=== PATIENT | female | born 1935 | race Caucasian/White ===

== ENCOUNTER 2017-12-11 13:41 | Inpatient (IN) | payer MEDICARE, SELFPAY ==
[2017-12-11 13:43] VITALS: BP 128/87; PULSE 118; RESP 18; O2SAT 98; BMI 27.0
--- NOTE | 2017-12-11 13:45 | HMH.EDGENADL ---
ED Disposition Clinical Impression: Acute gastritis, Toxic megacolon, Hemorrhoids Disposition: Still a Patient Condition on Discharge: Fair Instructions: DI for Gastrointestinal Bleeding - Critical Care Critical Care Time: No Attestation: On , the high probability of a clinically significant, sudden or life threatening deterioration of the following system(s) required my full and direct attention, intervention and personal management. The time I documented below is in addition to time spent performing reported procedures but includes the following listed in this critical care notation. Medical Decision Making - Medical Records Medical records reviewed: Yes: I reviewed the patient's medical records. Vital Signs: 12/11/17 13:43 12/11/17 15:37 Temperature Source Oral Pulse Rate [Right Brachial] 118 H 112 H Respiratory Rate 18 Blood Pressure [Right Arm] 128/87 130/70 Blood Pressure Mean [Right Arm] 100 90 Blood Pressure Source [Right Arm] Automatic Cuff Automatic Cuff Blood Pressure Position [Right Arm] Sitting Supine 02 Sat by Pulse Oximetry 98 91 L Oxygen Delivery Method Room Air - Lab Data Lab Results 12/11/17 13:45: WBC 16.3 H, RBC 4.84, Hgb 14.3, Hct 44.5, MCV 91.8, MCH 29.6, MCHC 32.3, RDW 13.5, Plt Count 205, MPV 8.0, Neut % (Auto) 84.8 H, Lymph % (Auto) 10.8, [place] % (Auto) 3.9, Eos % (Auto) 0.4, Baso % (Auto) 0.1, Neut # (Auto) 13.8 H, Lymph # (Auto) 1.8, [place] # (Auto) 0.6, Eos # (Auto) 0.1, Baso # (Auto) 0.0, Total Counted 100, Neutrophils % (Manual) 82 H, Band Neutrophils % 3.0, Lymphocytes % (Manual) 6 L, Atypical Lymphs % 3.0, Monocytes % (Manual) 6, Platelet Estimate Normal, RBC Morphology Normal 12/11/17 13:45: PT 11.0, INR 1.02, APTT 25.0 12/11/17 13:45: Sodium 142, Potassium 4.2, Chloride 106, Carbon Dioxide 29, Anion Gap 11.2, BUN 28 H, Creatinine 1.06 H, Estimated Creat Clear 54, Estimated GFR 50 L, Est GFR ( Amer) 60, Glucose 137 H, Calcium 9.2, Magnesium 1.9, Total Bilirubin 0.5, AST 17, ALT 18, Alkaline Phosphatase 82, Total Protein 7.0, Albumin 3.1 L, Globulin 3.9 H, Albumin/Globulin Ratio 0.8 L 12/11/17 13:46: Stool Occult Blood Positive A Result diagrams: 12/11/17 13:45 12/11/17 13:45 Orders (Tests/Meds): ORDERS Category Date Time Status CT abdomen pelvis wo con Stat Cat Scan 12/11/17 14:09 Taken Acute abdomen XR series [XR acute abdomen series] Stat Exams 12/11/17 13:46 Taken Lactic Acid Stat Lab 12/11/17 14:12 Ordered - CT Data CT Scan: Abdomen, Pelvis Time Received: 16:[address] Reviewed: Yes: I have viewed the radiologist's interpretation Preliminary Findings: Abnormal - [place]qu[place] Inquiry Pt receiving controlled substance: No [place] was queried for this patient: No Medical Decision Making Narrative: I discussed the patient presentation labs and CT scan results with Dr. Rivas who recommended admission for H2 blockers and consultation with Dr. Hurtado. General Adult HPI - General Chief complaint: GI Bleed Stated complaint: possible gi bleed - History of Present Illness HPI narrative: This is a 82 years old white female detention resident who has been suffering from constipation. she was giving an enema last night with good results. Today she developed coffee-ground emesis abdominal distention and was reported to have no bowel sounds. She was brought by EMS to the ED in a hemodynamically stable condition. Onset (ago): day(s) (symptoms started today.) Location: abdomen Radiation: non-radiation Relieving factors: other (She had history of constipation that was relieved by enema. ) Associated symptoms: nausea/vomiting (For ground emesis.) - Related Data Allergies Allergy/AdvReac Type Severity Reaction Status Date / Time No Known Allergies Allergy Unverified 10/19/17 14:13 ROS Obtained: Yes All systems reviewed & no additional complaints Physical Exam - General General appearance: alert, in no apparent distress - Head [place]
--- NOTE | 2017-12-11 13:46 | XR_ITS ---
XR acute abdomen series HISTORY: ITS.REASON: vomiting and constipation, abdominal distention ORDERING PHYSICIAN: Debi Evans MD PATIENT AGE: 82 years COMPARISON: 06/07/2016 FINDINGS: There is diffuse distention of the sigmoid colon as well as the colon proximal to this region. Mild small bowel gaseous distention also noted. The rectosigmoid measures up to 15 cm and contains air and stool consistent with colonic ileus. No free air. Frontal view the chest shows cardiomegaly with a hiatal hernia. IMPRESSION: Colonic ileus
--- NOTE | 2017-12-11 13:49 | ED_ITS ---
ED Disposition Clinical Impression: Acute gastritis, Toxic megacolon, Hemorrhoids Disposition: Still a Patient Condition on Discharge: Fair Instructions: DI for Gastrointestinal Bleeding - Critical Care Critical Care Time: No Attestation: On , the high probability of a clinically significant, sudden or life threatening deterioration of the following system(s) required my full and direct attention, intervention and personal management. The time I documented below is in addition to time spent performing reported procedures but includes the following listed in this critical care notation. Medical Decision Making - Medical Records Medical records reviewed: Yes: I reviewed the patient's medical records. Vital Signs: 12/11/17 13:43 12/11/17 15:37 Temperature Source Oral Pulse Rate [Right Brachial] 118 H 112 H Respiratory Rate 18 Blood Pressure [Right Arm] 128/87 130/70 Blood Pressure Mean [Right Arm] 100 90 Blood Pressure Source [Right Arm] Automatic Cuff Automatic Cuff Blood Pressure Position [Right Arm] Sitting Supine 02 Sat by Pulse Oximetry 98 91 L Oxygen Delivery Method Room Air - Lab Data Lab Results 12/11/17 13:45: WBC 16.3 H, RBC 4.84, Hgb 14.3, Hct 44.5, MCV 91.8, MCH 29.6, MCHC 32.3, RDW 13.5, Plt Count 205, MPV 8.0, Neut % (Auto) 84.8 H, Lymph % (Auto ) 10.8, [place] % (Auto) 3.9, Eos % (Auto) 0.4, Baso % (Auto) 0.1, Neut # (Auto) 13.8 H, Lymph # (Auto) 1.8, [place] # (Auto) 0.6, Eos # (Auto) 0.1, Baso # (Auto) 0.0, Total Counted 100, Neutrophils % (Manual) 82 H, Band Neutrophils % 3.0, Lymphocytes % (Manual) 6 L, Atypical Lymphs % 3.0, Monocytes % (Manual) 6, Platelet Estimate Normal, RBC Morphology Normal 12/11/17 13:45: PT 11.0, INR 1.02, APTT 25.0 12/11/17 13:45: Sodium 142, Potassium 4.2, Chloride 106, Carbon Dioxide 29, Anion Gap 11.2, BUN 28 H, Creatinine 1.06 H, Estimated Creat Clear 54, Estimated GFR 50 L, Est GFR ( Amer) 60, Glucose 137 H, Calcium 9.2, Magnesium 1.9, Total Bilirubin 0.5, AST 17, ALT 18, Alkaline Phosphatase 82, Total Protein 7.0, Albumin 3.1 L, Globulin 3.9 H, Albumin/Globulin Ratio 0.8 L 12/11/17 13:46: Stool Occult Blood Positive A Result diagrams: 12/11/17 13:45 12/11/17 13:45 Orders (Tests/Meds): ORDERS Category Date Time Status CT abdomen pelvis wo con Stat Cat Scan 12/11/17 14:09 Taken Acute abdomen XR series [XR acute abdomen series] Stat Exams 12/11/17 13:46 Taken Lactic Acid Stat Lab 12/11/17 14:12 Ordered - CT Data CT Scan: Abdomen, Pelvis Time Received: 16:[address] Reviewed: Yes: I have viewed the radiologist's interpretation Preliminary Findings: Abnormal - [place] Inquiry Pt receiving controlled substance: No [place] was queried for this patient: No Medical Decision Making Narrative: I discussed the patient presentation labs and CT scan results with Dr. Rivas who recommended admission for H2 blockers and consultation with Dr. Hurtado. General Adult HPI - General Chief complaint: GI Bleed Stated complaint: possible gi bleed - History of Present Illness HPI narrative: This is a 82 years old white female [facility] resident who has been suffering from constipation. she was giving an enema last night with good results. Today she developed coffee-ground emesis abdominal distention and was reported to have no bowel sounds. She was brought by EMS to the ED in a hemodynamically stable condition. Onset (ago): day(s) (
--- NOTE | 2017-12-11 14:09 | CT_ITS ---
CT abdomen pelvis wo con CLINICAL INDICATION: Bloating, abdominal distention, history of toxic megacolon ITS.REASON: r/o obstruction ORDERING PHYSICIAN: Boaz Mondragon MD PATIENT AGE: 82 years COMPARISON: 10/01/2017 TECHNIQUE: Axial images obtained with sagittal and coronal reformats. PROCEDURE: Oral Contrast: None IV Contrast: None . FINDINGS: Lower thoracic images show cardiomegaly with mild thickening of the pericardium suggesting small pericardial effusion with a moderate-sized hiatal hernia. Gallbladder is slightly distended with suspected gallstones. No ductal dilatation. The spleen, adrenal glands, pancreas, and kidneys, ureters, and urinary bladder has an unremarkable appearance. No evidence of appendicitis There is markedly dilated colon throughout worse at the sigmoid and rectosigmoid region containing air and stool. The rectosigmoid colon is distended measuring up to 14 cm. No obvious colonic wall thickening. No free air. No focal inflammatory changes evident. No obvious pneumatosis. IMPRESSION: 1. Markedly dilated colon as described above worse at the rectosigmoid region containing air and stool similar to 10/01/2017 consistent with colonic ileus 2. Cholelithiasis with mildly distended gallbladder. 3. Hiatal hernia
[2017-12-11 14:13] LABS: Basophils % 0.1 % (0.1-2.0); Eosinophils # 0.1 K/mm3 (0.0-0.4); Eosinophils % 0.4 % (0.1-12.0); Hematocrit 44.5 % (37.0-47.0); Hemoglobin 14.3 g/dL (12.2-16.2); Lymphocytes # 1.8 K/mm3 (0.7-4.5); Lymphocytes % 10.8 K/mm3 (10-50); Mean Corpuscular HGB Conc 32.3 g/dL (31.8-35.4); Mean Corpuscular Hemoglobin 29.6 pg (27.0-31.2); Mean Corpuscular Volume 91.8 fl (81-99); Monocytes # 0.6 K/mm3 (0.1-1.0); Monocytes % 3.9 % (1.7-9.3); Neutrophils # 13.8 K/mm3 (1.8-7.8); Neutrophils % 84.8 % (37.0-80.0); Platelet Count 205 K/mm3 (142-424); Red Blood Count 4.84 M/mm3 (4.20-5.40); Red Cell Distribution Width 13.5 % (11.5-17.5); White Blood Count 16.3 K/mm3 (4.8-10.8)
[2017-12-11 14:17] LABS: Alanine Aminotransferase 18 U/L (12-78); Albumin Level 3.1 gm/dL (3.4-5.0); Albumin/Globulin Ratio 0.8 (1.1-1.8); Alkaline Phosphatase 82 U/L (46-116); Anion Gap 11.2 mEq/L (5-15); Aspartate Amino Transferase 17 U/L (15-37); Bilirubin,Total 0.5 mg/dL (0.2-1.0); Blood Urea Nitrogen 28 mg/dL (7-18); Calcium 9.2 mg/dL (8.5-10.1); Carbon Dioxide 29 mmol/L (21.0-32.0); Chloride 106 mmol/L (98-107); Creatinine Clearance Estimated 54 mL/min (0-300); Creatinine,Serum 1.06 mg/dL (0.55-1.02); Estimated Glomerular Filt Rate 50 ml/min (>60); GFR (African American) 60 ML/MIN (>60); Globulin 3.9 gm/dl (1.3-3.2); Glucose 137 mg/dL (74-106); INR 1.02 (0.9-1.1); Magnesium 1.9 mg/dL (1.4-2.2); Potassium 4.2 mmoL/L (3.5-5.1); Sodium 142 mmol/L (136-145)
[2017-12-11 14:23] LABS: MANUAL DIFFERENTIAL MANUAL DIFFERENTIAL (MANUAL DIFF)
[2017-12-11 14:41] LABS: Lymphocytes % 6 % (10-50); Monocytes % 6 % (2-9); Neutrophils % 82 % (42-76); Total Cells Counted 100
[2017-12-11 14:42] LABS: Platelet Estimate Normal; RBC Morphology Normal
[2017-12-11 14:45] LABS: Occult Blood,Stool Positive (Negative)
[2017-12-11 15:37] VITALS: BP 130/70; PULSE 112; O2SAT 91
[2017-12-11 16:56] LABS: Lactic Acid 2.1 mmol/L (0.4-2.0)
[2017-12-11 16:57] LABS: Reflex Lactic Add Lactic Reflex
[2017-12-11 17:26] VITALS: BP 125/82; PULSE 85; RESP 18; TEMP 36.3; O2SAT 99
[2017-12-11 18:23] VITALS: BP 133/82; PULSE 113; RESP 20; TEMP 38.1; O2SAT 93; BMI 27.0
[2017-12-11 20:00] VITALS: BP 157/91; PULSE 120; RESP 24; TEMP 37.3; O2SAT 92
[2017-12-11 20:09] LABS: Lactic Acid Follow Up (RFLX 1) 1.1 (0.4-2.0)
[2017-12-12 04:00] VITALS: BP 135/78; PULSE 105; RESP 20; TEMP 37.1; O2SAT 93
--- NOTE | 2017-12-12 06:39 | PC.NURSE ---
Resting in bed. Emesis x 1 this shift. Brown in color. States that her stomach has been hurting on and off during the shift. Protonix drip continues to run at this time. Second IV placed in left hand and tolerated this well. No signs or symptoms of distress noted. NO complaints voiced at this time.
--- NOTE | 2017-12-12 07:24 | HMH.HP ---
*Admission Date: 12/11/17 *Chief complaint: Abdominal distention *History of present illness: 82-year-old female group home resident presented to the emergency department yesterday with distended abdomen and concern about obstruction. [facility]entiary staff had reported the abdominal distention with absent bowel sounds. Patient was brought to the emergency department. She apparently also had an enema at some point in the preceding 24 hours with excellent response. Workup revealed significant colonic distention. Staff at the group home and also reported coffee ground emesis. Patient was admitted and placed on IV fluids and Protonix. Surgical consult was ordered. Overnight patient had no problems although tells me she vomited at least twice. Some of the emesis is dried on her down and bed sheets this morning and does appear coffee-ground [facility] History Medical History: Denies:: Cancer, Diabetes Mellitus Type 1, Diabetes Mellitus Type 2, Internal Pacemaker, MRSA Other Surgeries: No: Pacemaker Amputation: No - *Social History Smoking Status: Never smoker Alcohol Intake: never Occupational Status: retired Housing: group home - Psychiatric History Expresses thoughts of harming self/others: None Suicide Plan Description: No Plan Review of Systems - Constitutional Denies body ache(s), Denies chills - Eyes Denies blurry vision - *Cardiovascular Denies chest pain, Denies chest pain at rest, Denies shortness of breath - *Respiratory Reports cough Meds Home Medications Medication Instructions Recorded Confirmed Type Acetaminophen 500 mg PO Q4HP PRN 12/11/17 12/11/17 History Buspirone HCl [Buspar 10mg tablet] 10 mg PO TID 12/11/17 12/11/17 History Calcium Carbonate/Vitamin D3 1 each PO BID 12/11/17 12/11/17 History [Caltrate 600 Plus D3 Tablet] Cyanocobalamin (Vitamin B-12) 1,000 mcg PO DAILY 12/11/17 12/11/17 History [Vitamin B-12] Donepezil HCl [Aricept 10mg tablet] 10 mg PO HS 12/11/17 12/11/17 History Hydrocortisone [Hydrocortisone 1% 0 gm TP BID 12/11/17 12/11/17 History Cream 30gm Tube] Lactobacillus Acidophilus 1 each PO DAILY 12/11/17 12/11/17 History [Acidophilus Lactobacilli] Meclizine HCl [Meclizine 25mg Tab] 25 mg PO TID PRN 12/11/17 12/11/17 History Nystatin [Nystatin Cr 100,000 0 gm TOPICAL TID PRN 12/11/17 12/11/17 History Units/GM 30GM] Ondansetron HCl [Zofran 4mg Tab] 4 mg PO Q6 PRN 12/11/17 12/11/17 History Polyethylene Glycol 3350 [Miralax 17 gm PO BID 12/11/17 12/11/17 History 17gm Packet] Quetiapine Fumarate [Seroquel] 50 mg PO DAILY 12/11/17 12/11/17 History Quetiapine Fumarate [Seroquel] 150 mg PO 1600 12/11/17 12/11/17 History Sod Phos,M-B/Na Phos,Di-Ba [Fleet 133 ml RC DAILYP PRN 12/11/17 12/11/17 History Enema] Trazodone HCl 50 mg PO HS 12/11/17 12/11/17 History Allergies Allergy/AdvReac Type Severity Reaction Status Date / Time No Known Allergies Allergy Unverified 10/19/17 14:13 Exam Vital signs and Labs for Last 24 Hours: Temp Pulse Resp BP Pulse Ox 98.7 F 105 H 20 135/78 93 L 12/12/17 04:00 12/12/17 04:00 12/12/17 04:00 12/12/17 04:00 12/12/17 04:00 Laboratory Results - last 24 hr 12/11/17 19:46: Lactic Acid Fup @ 4Hr 1.1 Laboratory Results - last 24 hr 12/11/17 13:45: WBC 16.3 H, RBC 4.84, Hgb 14.3, Hct 44.5, MCV 91.8, MCH 29.6, MCHC 32.3, RDW 13.5, Plt Count 205, MPV 8.0, Neut % (Auto) 84.8 H, Lymph % (Auto) 10.8, [place] % (Auto) 3.9, Eos % (Auto) 0.4, Baso % (Auto) 0.1, Neut # (Auto) 13.8 H, Lymph # (Auto) 1.8, [place] # (Auto) 0.6, Eos # (Auto) 0.1, Baso # (Auto) 0.0, Total Counted 100, Neutrophils % (Manual) 82 H, Band Neutrophils % 3.0, Lymphocytes % (Manual) 6 L, Atypical Lymphs % 3.0, Monocytes % (Manual) 6, Platelet Estimate Normal, RBC Morphology Normal 12/11/17 13:45: PT 11.0, INR 1.02, APTT 25.0 12/11/17 13:45: Sodium 142, Potassium 4.2, Chloride 106, Carbon Dioxide 29, Anion Gap 11.2, BUN 28 H, Creatinine 1.06 H, [place]
[2017-12-12 07:25] LABS: Anion Gap 10.1 mEq/L (5-15); Blood Urea Nitrogen 26 mg/dL (7-18); Carbon Dioxide 30 mmol/L (21.0-32.0); Chloride 106 mmol/L (98-107); Creatinine Clearance Estimated 54 mL/min (0-300); Creatinine,Serum 0.85 mg/dL (0.55-1.02); Estimated Glomerular Filt Rate 64 ml/min (>60); GFR (African American) 78 ML/MIN (>60); Glucose 131 mg/dL (74-106); Potassium 4.1 mmoL/L (3.5-5.1); Sodium 142 mmol/L (136-145)
[2017-12-12 07:26] LABS: Basophils % 0.1 % (0.1-2.0); Eosinophils % 0.5 % (0.1-12.0); Hematocrit 43.8 % (37.0-47.0); Hemoglobin 14.2 g/dL (12.2-16.2); Lymphocytes # 1.4 K/mm3 (0.7-4.5); Lymphocytes % 16.3 K/mm3 (10-50); Mean Corpuscular HGB Conc 32.4 g/dL (31.8-35.4); Mean Corpuscular Hemoglobin 29.9 pg (27.0-31.2); Mean Corpuscular Volume 92.1 fl (81-99); Mean Platelet Volume 7.7 fl (7.4-10.4); Monocytes # 0.4 K/mm3 (0.1-1.0); Neutrophils # 6.9 K/mm3 (1.8-7.8); Neutrophils % 79.1 % (37.0-80.0); Platelet Count 175 K/mm3 (142-424); Red Blood Count 4.76 M/mm3 (4.20-5.40); Red Cell Distribution Width 13.6 % (11.5-17.5); White Blood Count 8.8 K/mm3 (4.8-10.8)
[2017-12-12 07:27] VITALS: BP 139/80; PULSE 99; RESP 18; TEMP 36.9; O2SAT 93
--- NOTE | 2017-12-12 07:27 | P.HP_ITS ---
*Admission Date: 12/11/17 *Chief complaint: Abdominal distention *History of present illness: 82-year-old female shelter resident presented to the emergency department yesterday with distended abdomen and concern about obstruction. detention staff had reported the abdominal distention with absent bowel sounds. Patient was brought to the emergency department. She apparently also had an enema at some point in the preceding 24 hours with excellent response. Workup revealed significant colonic distention. Staff at the shelter and also reported coffee ground emesis. Patient was admitted and placed on IV fluids and Protonix. Surgical consult was ordered. Overnight patient had no problems although tells me she vomited at least twice. Some of the emesis is dried on her down and bed sheets this morning and does appear coffee-ground [facility] History Medical History: Denies:: Cancer, Diabetes Mellitus Type 1, Diabetes Mellitus Type 2, Internal Pacemaker, MRSA Other Surgeries: No: Pacemaker Amputation: No - *Social History Smoking Status: Never smoker Alcohol Intake: never Occupational Status: retired Housing: shelter - Psychiatric History Expresses thoughts of harming self/others: None Suicide Plan Description: No Plan Review of Systems - Constitutional Denies body ache(s), Denies chills - Eyes Denies blurry vision - *Cardiovascular Denies chest pain, Denies chest pain at rest, Denies shortness of breath - *Respiratory Reports cough Meds Home Medications Medication Instructions Recorded Confirmed Type Acetaminophen 500 mg PO Q4HP PRN 12/11/17 12/11/17 History Buspirone HCl [Buspar 10mg tablet] 10 mg PO TID 12/11/17 12/11/17 History Calcium Carbonate/Vitamin D3 1 each PO BID 12/11/17 12/11/17 History [Caltrate 600 Plus D3 Tablet] Cyanocobalamin (Vitamin B-12) 1,000 mcg PO DAILY 12/11/17 12/11/17 History [Vitamin B-12] Donepezil HCl [Aricept 10mg tablet] 10 mg PO HS 12/11/17 12/11/17 History Hydrocortisone [Hydrocortisone 1% 0 gm TP BID 12/11/17 12/11/17 History Cream 30gm Tube] Lactobacillus Acidophilus 1 each PO DAILY 12/11/17 12/11/17 History [Acidophilus Lactobacilli] Meclizine HCl [Meclizine 25mg Tab] 25 mg PO TID PRN 12/11/17 12/11/17 History Nystatin [Nystatin Cr 100,000 0 gm TOPICAL TID PRN 12/11/17 12/11/17 History Units/GM 30GM] Ondansetron HCl [Zofran 4mg Tab] 4 mg PO Q6 PRN 12/11/17 12/11/17 History Polyethylene Glycol 3350 [Miralax 17 gm PO BID 12/11/17 12/11/17 History 17gm Packet] Quetiapine Fumarate [Seroquel] 50 mg PO DAILY 12/11/17 12/11/17 History Quetiapine Fumarate [Seroquel] 150 mg PO 1600 12/11/17 12/11/17 History Sod Phos,M-B/Na Phos,Di-Ba [Fleet 133 ml RC DAILYP PRN 12/11/17 12/11/17 History Enema] Trazodone HCl 50 mg PO HS 12/11/17 12/11/17 History Allergies Allergy/AdvReac Type Severity Reaction Status Date / Time No Known Allergies Allergy Unverified 10/19/17 14:13 Exam Vital signs and Labs for Last 24 Hours: Temp Pulse Resp BP Pulse Ox 98.7 F 105 H 20 135/78 93 L 12/12/17 04:00 12/12/17 04:00 12/12/17 04:00 12/12/17 04:00 12/12/17 04:00 Laboratory Results - last 24 hr 12/11/17 19:46: Lactic Acid Fup @ 4Hr 1.1 Laboratory Results - last 24 hr 12/11/17 13:45: WBC 16.3 H, RBC 4.84, Hgb 14.3, Hct 44.5, MCV 91.8, MCH 29.6,
[2017-12-12 08:00] VITALS: O2SAT 93
--- NOTE | 2017-12-12 08:12 | HMH.GSCON ---
*Admission Date: 12/11/17 *Chief complaint: abdominal pain *History of present illness: This is an 82 yo female seen in consultation after presenting to the ED with abdominal pain. 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 She was recently hospitalized where aggressive therapy included milk/molasses enemas. Staff at the alf and also reported coffee ground emesis. Review of Systems - Constitutional Denies fever(s) - Eyes Denies change in vision - *Cardiovascular Denies chest pain - *Respiratory Denies cough - *Gastrointestinal Reports abdominal pain, Reports constipation, Reports nausea, Reports vomiting, Denies black, tarry stools [facility] History Medical History: Denies:: Cancer, Diabetes Mellitus Type 1, Diabetes Mellitus Type 2, Internal Pacemaker, MRSA Other Surgeries: No: Pacemaker Amputation: No - *Social History Smoking Status: Never smoker Alcohol Intake: never Occupational Status: retired Housing: alf - Psychiatric History Expresses thoughts of harming self/others: None Suicide Plan Description: No Plan Meds Home Medications Medication Instructions Recorded Confirmed Type Acetaminophen 500 mg PO Q4HP PRN 12/11/17 12/11/17 History Buspirone HCl [Buspar 10mg tablet] 10 mg PO TID 12/11/17 12/11/17 History Calcium Carbonate/Vitamin D3 1 each PO BID 12/11/17 12/11/17 History [Caltrate 600 Plus D3 Tablet] Cyanocobalamin (Vitamin B-12) 1,000 mcg PO DAILY 12/11/17 12/11/17 History [Vitamin B-12] Donepezil HCl [Aricept 10mg tablet] 10 mg PO HS 12/11/17 12/11/17 History Hydrocortisone [Hydrocortisone 1% 0 gm TP BID 12/11/17 12/11/17 History Cream 30gm Tube] Lactobacillus Acidophilus 1 each PO DAILY 12/11/17 12/11/17 History [Acidophilus Lactobacilli] Meclizine HCl [Meclizine 25mg Tab] 25 mg PO TID PRN 12/11/17 12/11/17 History Nystatin [Nystatin Cr 100,000 0 gm TOPICAL TID PRN 12/11/17 12/11/17 History Units/GM 30GM] Ondansetron HCl [Zofran 4mg Tab] 4 mg PO Q6 PRN 12/11/17 12/11/17 History Polyethylene Glycol 3350 [Miralax 17 gm PO BID 12/11/17 12/11/17 History 17gm Packet] Quetiapine Fumarate [Seroquel] 50 mg PO DAILY 12/11/17 12/11/17 History Quetiapine Fumarate [Seroquel] 150 mg PO 1600 12/11/17 12/11/17 History Sod Phos,M-B/Na Phos,Di-Ba [Fleet 133 ml RC DAILYP PRN 12/11/17 12/11/17 History Enema] Trazodone HCl 50 mg PO HS 12/11/17 12/11/17 History Allergies Allergy/AdvReac Type Severity Reaction Status Date / Time No Known Allergies Allergy Unverified 10/19/17 14:13 Exam Vital signs and Labs for Last 24 Hours: Temp Pulse Resp BP Pulse Ox 98.4 F 99 H 18 139/80 93 L 12/12/17 07:27 12/12/17 07:27 12/12/17 07:27 12/12/17 07:27 12/12/17 07:27 Laboratory Results - last 24 hr 12/11/17 19:46: Lactic Acid Fup @ 4Hr 1.1 12/12/17 06:20: WBC 8.8 D, RBC 4.76, Hgb 14.2, Hct 43.8, MCV 92.1, MCH 29.9, MCHC 32.4, RDW 13.6, Plt Count 175, MPV 7.7, Neut % (Auto) 79.1, Lymph % (Auto) 16.3, [place] % (Auto) 4.0, Eos % (Auto) 0.5, Baso % (Auto) 0.1, Neut # (Auto) 6.9, Lymph # (Auto) 1.4, [place] # (Auto) 0.4, Eos # (Auto) 0.0, Baso # (Auto) 0.0 12/12/17 06:20: Sodium 142, Potassium 4.1, Chloride 106, Carbon Dioxide 30, Anion Gap 10.1, BUN 26 H, Creatinine 0.85, Estimated Creat Clear 54, Estimated GFR 64, Est GFR ( Amer) 78 D, Glucose 131 H I & O for Last 24 hours: Intake & Output 0212/10/17 12/11/17 12/12/17 11:59 11:59 11:59 11:59 Weight 167 lb 7 oz - Constitutional no acute distress - *Routine Respiratory Exam Absent: respiratory distress - *Routine Cardiovascular Exam Present: RRR - *Routine Abdominal Exam Present: soft, distended Results - Labs 12/12/17 06:20 12/12/17 06:20 Laboratory Results - last 24 hr 12/11/17 19:46: Lactic Acid Fup @ 4Hr 1.1 12/12/17 06:20: WBC 8.8 D, RBC 4.76, Hgb 14.2, Hct 43.8, MCV 92.1
--- NOTE | 2017-12-12 08:20 | P.CONS_ITS ---
*Admission Date: 12/11/17 *Chief complaint: abdominal pain *History of present illness: This is an 82 yo female seen in consultation after presenting to the ED with abdominal pain. 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 She was recently hospitalized where aggressive therapy included milk/molasses enemas. Staff at the assisted and also reported coffee ground emesis. Review of Systems - Constitutional Denies fever(s) - Eyes Denies change in vision - *Cardiovascular Denies chest pain - *Respiratory Denies cough - *Gastrointestinal Reports abdominal pain, Reports constipation, Reports nausea, Reports vomiting, Denies black, tarry stools [facility] History Medical History: Denies:: Cancer, Diabetes Mellitus Type 1, Diabetes Mellitus Type 2, Internal Pacemaker, MRSA Other Surgeries: No: Pacemaker Amputation: No - *Social History Smoking Status: Never smoker Alcohol Intake: never Occupational Status: retired Housing: assisted - Psychiatric History Expresses thoughts of harming self/others: None Suicide Plan Description: No Plan Meds Home Medications Medication Instructions Recorded Confirmed Type Acetaminophen 500 mg PO Q4HP PRN 12/11/17 12/11/17 History Buspirone HCl [Buspar 10mg tablet] 10 mg PO TID 12/11/17 12/11/17 History Calcium Carbonate/Vitamin D3 1 each PO BID 12/11/17 12/11/17 History [Caltrate 600 Plus D3 Tablet] Cyanocobalamin (Vitamin B-12) 1,000 mcg PO DAILY 12/11/17 12/11/17 History [Vitamin B-12] Donepezil HCl [Aricept 10mg tablet] 10 mg PO HS 12/11/17 12/11/17 History Hydrocortisone [Hydrocortisone 1% 0 gm TP BID 12/11/17 12/11/17 History Cream 30gm Tube] Lactobacillus Acidophilus 1 each PO DAILY 12/11/17 12/11/17 History [Acidophilus Lactobacilli] Meclizine HCl [Meclizine 25mg Tab] 25 mg PO TID PRN 12/11/17 12/11/17 History Nystatin [Nystatin Cr 100,000 0 gm TOPICAL TID PRN 12/11/17 12/11/17 History Units/GM 30GM] Ondansetron HCl [Zofran 4mg Tab] 4 mg PO Q6 PRN 12/11/17 12/11/17 History Polyethylene Glycol 3350 [Miralax 17 gm PO BID 12/11/17 12/11/17 History 17gm Packet] Quetiapine Fumarate [Seroquel] 50 mg PO DAILY 12/11/17 12/11/17 History Quetiapine Fumarate [Seroquel] 150 mg PO 1600 12/11/17 12/11/17 History Sod Phos,M-B/Na Phos,Di-Ba [Fleet 133 ml RC DAILYP PRN 12/11/17 12/11/17 History Enema] Trazodone HCl 50 mg PO HS 12/11/17 12/11/17 History Allergies Allergy/AdvReac Type Severity Reaction Status Date / Time No Known Allergies Allergy Unverified 10/19/17 14:13 Exam Vital signs and Labs for Last 24 Hours: Temp Pulse Resp BP Pulse Ox 98.4 F 99 H 18 139/80 93 L 12/12/17 07:27 12/12/17 07:27 12/12/17 07:27 12/12/17 07:27 12/12/17 07:27 Laboratory Results - last 24 hr 12/11/17 19:46: Lactic Acid Fup @ 4Hr 1.1 12/12/17 06:20: WBC 8.8 D, RBC 4.76, Hgb 14.2, Hct 43.8, MCV 92.1, MCH 29.9, MCHC 32.4, RDW 13.6, Plt Count 175, MPV 7.7, Neut % (Auto) 79.1, Lymph % (Auto) 16.3, [place] % (Auto) 4.0, Eos % (Auto) 0.5, Baso % (Auto) 0.1, Neut # (Auto) 6.9 , Lymph # (Auto) 1.4, [place] # (Auto) 0.4, Eos # (Auto) 0.0, Baso # (Auto) 0.0 12/12/17 06:20: Sodium 142, Potassium 4.1, Chloride 106, Carbon Dioxide 30, Anion Gap 10.1, BUN 26 H, Creatinine 0.85, Estimated Creat Clear 54,
--- NOTE | 2017-12-12 10:23 | HMH.PHAVTE ---
[facility] Pharmacy VTE Monitoring - Patient Demographics Admission date: 12/12/17 Report Date: 12/12/17 Time: 10:23 Allergies/Adverse Reactions: Patient Allergies No Known Allergies Allergy (Unverified 10/19/17 14:13) Height: 1.68 m Weight: 75.948 kg Patient Problems: Current Active Problems Acute gastritis (Acute) Toxic megacolon (Acute) Hemorrhoids (Acute) Ileus (Acute) Pseudoobstruction of colon (Chronic) Coffee ground emesis (Acute) - VTE Risk Labs: VTE Related Lab Results Hgb 14.2 g/dL (12.2-16.2) 12/12/17 06:20 Hct 43.8 % (37.0-47.0) 12/12/17 06:20 Plt Count 175 K/mm3 (142-424) 12/12/17 06:20 PT 11.0 seconds (9.4-11.8) 12/11/17 13:45 INR 1.02 (0.9-1.1) 12/11/17 13:45 APTT 25.0 seconds (23.6-34.0) 12/11/17 13:45 BUN 26 mg/dL (7-18) H 12/12/17 06:20 Creatinine 0.85 mg/dL (0.55-1.02) 12/12/17 06:20 Estimated Creat Clear 54 mL/min (0-300) 12/12/17 06:20 Was VTE Risk Assessment Performed: Yes VTE Score: 2 - Prophylaxis Types of VTE Prophylaxis: TEDS Knee High Location of Applied Device: Bilateral Lower Extremeties - VTE Diagnosis Confirmed Comment: MOSHE CHAU
[2017-12-12 14:13] LABS: Hematocrit 40.8 % (37.0-47.0); Hemoglobin 13.5 g/dL (12.2-16.2)
[2017-12-12 15:35] VITALS: BP 156/83; PULSE 101; RESP 18; TEMP 37.1; O2SAT 94
[2017-12-12 21:02] VITALS: BP 117/56; PULSE 120; RESP 22; TEMP 36.7; O2SAT 92
[2017-12-12 21:30] VITALS: O2SAT 92
--- NOTE | 2017-12-13 03:42 | PC.NURSE ---
no changes noted from previous assessment, pt made attempts to get out of bed several times, pt settled down and has rested since, denies pain at this time, abdomen is firm and distended, pt has only had small smear bowel movements green in color despite enemas, bowel sounds are active, breath sounds clear, pt dislodged IV, a new IV was placed to the right forearm, pt tolerated well, no acute distress noted at this time, safety measures in place, call light in reach, will continue to monitor.
[2017-12-13 04:00] VITALS: BP 131/80; PULSE 61; RESP 18; TEMP 36.7; O2SAT 93
[2017-12-13 07:06] LABS: Basophils % 0.2 % (0.1-2.0); Eosinophils # 0.1 K/mm3 (0.0-0.4); Eosinophils % 1.7 % (0.1-12.0); Hematocrit 38.5 % (37.0-47.0); Hemoglobin 12.2 g/dL (12.2-16.2); Lymphocytes % 23.9 K/mm3 (10-50); Mean Corpuscular HGB Conc 31.6 g/dL (31.8-35.4); Mean Corpuscular Hemoglobin 29.1 pg (27.0-31.2); Mean Corpuscular Volume 92.1 fl (81-99); Mean Platelet Volume 7.7 fl (7.4-10.4); Monocytes # 0.3 K/mm3 (0.1-1.0); Monocytes % 7.6 % (1.7-9.3); Neutrophils # 2.9 K/mm3 (1.8-7.8); Neutrophils % 66.6 % (37.0-80.0); Platelet Count 157 K/mm3 (142-424); Red Blood Count 4.18 M/mm3 (4.20-5.40); Red Cell Distribution Width 13.7 % (11.5-17.5); White Blood Count 4.3 K/mm3 (4.8-10.8)
[2017-12-13 07:17] LABS: Blood Urea Nitrogen 23 mg/dL (7-18); Carbon Dioxide 31 mmol/L (21.0-32.0); Chloride 113 mmol/L (98-107); Creatinine Clearance Estimated 54 mL/min (0-300); Creatinine,Serum 0.76 mg/dL (0.55-1.02); Estimated Glomerular Filt Rate 73 ml/min (>60); GFR (African American) 89 ML/MIN (>60); Glucose 120 mg/dL (74-106)
[2017-12-13 07:36] LABS: Sodium 150 mmol/L (136-145)
[2017-12-13 08:00] VITALS: BP 130/74; PULSE 86; RESP 18; TEMP 36.9; O2SAT 90
--- NOTE | 2017-12-13 08:21 | HMH.ACPN2 ---
Internal Medicine - PN: Subj *Date: 12/13/17 *Time: 08:21 Interval history: Patient had a liquid bowel movement after the interventions yesterday. Remains n.p.o. She reports that she is feeling better but continues to feel like her abdomen is swollen. Exam Vital signs and Labs for Last 24 Hours: Temp Pulse Resp BP Pulse Ox 98.1 F 61 18 131/80 93 L 12/13/17 04:00 12/13/17 04:00 12/13/17 04:00 12/13/17 04:00 12/13/17 04:00 Laboratory Results - last 24 hr 12/12/17 13:50: Hgb 13.5, Hct 40.8 12/13/17 06:45: WBC 4.3 L D, RBC 4.18 L, Hgb 12.2, Hct 38.5, MCV 92.1, MCH 29.1, MCHC 31.6 L, RDW 13.7, Plt Count 157, MPV 7.7, Neut % (Auto) 66.6, Lymph % (Auto) 23.9, [place] % (Auto) 7.6, Eos % (Auto) 1.7, Baso % (Auto) 0.2, Neut # (Auto) 2.9, Lymph # (Auto) 1.0, [place] # (Auto) 0.3, Eos # (Auto) 0.1, Baso # (Auto) 0.0 12/13/17 06:45: Sodium 150 H, Potassium 3.0 L, Chloride 113 H, Carbon Dioxide 31, Anion Gap 9.0, BUN 23 H, Creatinine 0.76, Estimated Creat Clear 54, Estimated GFR 73, Est GFR ( Amer) 89, Glucose 120 H I & O for Last 24 hours: Intake & Output 12/10/17 12/11/17 12/12/17 12/13/17 11:59 11:59 11:59 11:59 Intake Total 100 / 100 722 / 722 Balance 100 / 100 722 / 722 Weight 167 lb 7 oz Narrative: Patient is pleasant, lungs are clear, heart rate regular, abdomen is soft but doughy, slight distention, a paucity of bowel sounds noted. Assessment and Plan (1) Ileus Current visit: Yes Status: Acute Category: Medical Code(s): K56.7 - Ileus, unspecified (2) Acute gastritis Current visit: Yes Status: Acute Category: Medical Code(s): K29.00 - Acute gastritis without bleeding (3) Pseudoobstruction of colon Current visit: Yes Status: Chronic Category: Medical Code(s): K59.8 - Other specified functional intestinal disorders (4) Coffee ground emesis Current visit: Yes Status: Acute Category: Medical Code(s): K92.0 - Hematemesis - Assessment and plan all Dx Assessment and Plan for all problems:: Plan will be to treat constipation with milk and molasses enemas which were successful at last visit. Cautious clear liquid diet. I agree with surgical consultation that endoscopic intervention is not an option in this medically fragile aged lady.
--- NOTE | 2017-12-13 08:24 | P.PN_ITS ---
Internal Medicine - PN: Subj *Date: 12/13/17 *Time: 08:21 Interval history: Patient had a liquid bowel movement after the interventions yesterday. Remains n.p.o. She reports that she is feeling better but continues to feel like her abdomen is swollen. Exam Vital signs and Labs for Last 24 Hours: Temp Pulse Resp BP Pulse Ox 98.1 F 61 18 131/80 93 L 12/13/17 04:00 12/13/17 04:00 12/13/17 04:00 12/13/17 04:00 12/13/17 04:00 Laboratory Results - last 24 hr 12/12/17 13:50: Hgb 13.5, Hct 40.8 12/13/17 06:45: WBC 4.3 L D, RBC 4.18 L, Hgb 12.2, Hct 38.5, MCV 92.1, MCH 29.1 , MCHC 31.6 L, RDW 13.7, Plt Count 157, MPV 7.7, Neut % (Auto) 66.6, Lymph % ( Auto) 23.9, [place] % (Auto) 7.6, Eos % (Auto) 1.7, Baso % (Auto) 0.2, Neut # (Auto ) 2.9, Lymph # (Auto) 1.0, [place] # (Auto) 0.3, Eos # (Auto) 0.1, Baso # (Auto) 0.0 12/13/17 06:45: Sodium 150 H, Potassium 3.0 L, Chloride 113 H, Carbon Dioxide 31 , Anion Gap 9.0, BUN 23 H, Creatinine 0.76, Estimated Creat Clear 54, Estimated GFR 73, Est GFR ( Amer) 89, Glucose 120 H I & O for Last 24 hours: Intake & Output 12/10/17 12/11/17 12/12/17 12/13/17 11:59 11:59 11:59 11:59 Intake Total 100 / 100 722 / 722 Balance 100 / 100 722 / 722 Weight 167 lb 7 oz Narrative: Patient is pleasant, lungs are clear, heart rate regular, abdomen is soft but doughy, slight distention, a paucity of bowel sounds noted. Assessment and Plan (1) Ileus Current visit: Yes Status: Acute Category: Medical Code(s): K56.7 - Ileus , unspecified (2) Acute gastritis Current visit: Yes Status: Acute Category: Medical Code(s): K29.00 - Acute gastritis without bleeding (3) Pseudoobstruction of colon Current visit: Yes Status: Chronic Category: Medical Code(s): K59.8 - Other specified functional intestinal disorders (4) Coffee ground emesis Current visit: Yes Status: Acute Category: Medical Code(s): K92.0 - Hematemesis - Assessment and plan all Dx Assessment and Plan for all problems:: Plan will be to treat constipation with milk and molasses enemas which were successful at last visit. Cautious clear liquid diet. I agree with surgical consultation that endoscopic intervention is not an option in this medically fragile aged lady.
--- NOTE | 2017-12-13 08:52 | HMH.GSPN ---
Subjective Patient reports: no new complaints, bowel movement Exam Vital signs and Labs for Last 24 Hours: Temp Pulse Resp BP Pulse Ox 98.4 F 86 18 130/74 90 L 12/13/17 08:00 12/13/17 08:00 12/13/17 08:00 12/13/17 08:00 12/13/17 08:00 Laboratory Results - last 24 hr 12/12/17 13:50: Hgb 13.5, Hct 40.8 12/13/17 06:45: WBC 4.3 L D, RBC 4.18 L, Hgb 12.2, Hct 38.5, MCV 92.1, MCH 29.1, MCHC 31.6 L, RDW 13.7, Plt Count 157, MPV 7.7, Neut % (Auto) 66.6, Lymph % (Auto) 23.9, [place] % (Auto) 7.6, Eos % (Auto) 1.7, Baso % (Auto) 0.2, Neut # (Auto) 2.9, Lymph # (Auto) 1.0, [place] # (Auto) 0.3, Eos # (Auto) 0.1, Baso # (Auto) 0.0 12/13/17 06:45: Sodium 150 H, Potassium 3.0 L, Chloride 113 H, Carbon Dioxide 31, Anion Gap 9.0, BUN 23 H, Creatinine 0.76, Estimated Creat Clear 54, Estimated GFR 73, Est GFR ( Amer) 89, Glucose 120 H I & O for Last 24 hours: Intake & Output 12/10/17 12/11/17 12/12/17 12/13/17 11:59 11:59 11:59 11:59 Intake Total 100 / 100 722 / 722 Balance 100 / 100 722 / 722 Weight 167 lb 7 oz - Constitutional no acute distress - *Routine Respiratory Exam Absent: respiratory distress - *Routine Cardiovascular Exam Present: RRR - *Routine Abdominal Exam Present: soft, distended Progress Note: A&P (1) Ileus Status: Acute Current Visit: Yes (2) Acute gastritis Status: Acute Assessment and plan: no sign of ongoing hemorrhage continue PPI Current Visit: Yes (3) Pseudoobstruction of colon Status: Chronic Assessment and plan: milk and molasses enemas continue serial exams Current Visit: Yes (4) Coffee ground emesis Status: Acute Current Visit: Yes
--- NOTE | 2017-12-13 08:55 | P.PN_ITS ---
Subjective Patient reports: no new complaints, bowel movement Exam Vital signs and Labs for Last 24 Hours: Temp Pulse Resp BP Pulse Ox 98.4 F 86 18 130/74 90 L 12/13/17 08:00 12/13/17 08:00 12/13/17 08:00 12/13/17 08:00 12/13/17 08:00 Laboratory Results - last 24 hr 12/12/17 13:50: Hgb 13.5, Hct 40.8 12/13/17 06:45: WBC 4.3 L D, RBC 4.18 L, Hgb 12.2, Hct 38.5, MCV 92.1, MCH 29.1 , MCHC 31.6 L, RDW 13.7, Plt Count 157, MPV 7.7, Neut % (Auto) 66.6, Lymph % ( Auto) 23.9, [place] % (Auto) 7.6, Eos % (Auto) 1.7, Baso % (Auto) 0.2, Neut # (Auto ) 2.9, Lymph # (Auto) 1.0, [place] # (Auto) 0.3, Eos # (Auto) 0.1, Baso # (Auto) 0.0 12/13/17 06:45: Sodium 150 H, Potassium 3.0 L, Chloride 113 H, Carbon Dioxide 31 , Anion Gap 9.0, BUN 23 H, Creatinine 0.76, Estimated Creat Clear 54, Estimated GFR 73, Est GFR ( Amer) 89, Glucose 120 H I & O for Last 24 hours: Intake & Output 12/10/17 12/11/17 12/12/17 12/13/17 11:59 11:59 11:59 11:59 Intake Total 100 / 100 722 / 722 Balance 100 / 100 722 / 722 Weight 167 lb 7 oz - Constitutional no acute distress - *Routine Respiratory Exam Absent: respiratory distress - *Routine Cardiovascular Exam Present: RRR - *Routine Abdominal Exam Present: soft, distended Progress Note: A&P (1) Ileus Status: Acute Current Visit: Yes (2) Acute gastritis Status: Acute Assessment and plan: no sign of ongoing hemorrhage continue PPI Current Visit: Yes (3) Pseudoobstruction of colon Status: Chronic Assessment and plan: milk and molasses enemas continue serial exams Current Visit: Yes (4) Coffee ground emesis Status: Acute Current Visit: Yes
[2017-12-13 12:04] LABS: POC Glucose,Bedside 179 mg/dL
--- NOTE | 2017-12-13 14:25 | PC.NURSE ---
Pt resting in bed, awating results from milk and molasses enema that was given this shift. Pt remains at her cognitive baseline. ambulates to bathroom with standby assistance, Protonix drip remains in place at 10 ml/hr. bed safety in place, clip alarm and bed safety alarm are noted and working. Family was at bedside this shift. Concern was noted by family that pt was not moving about like she did at the [facility] and has been more sleepy the last few days. PT has been up in room today some. Clear liquid is tolerated well by pt. Abdomen remains distended. Will continue to monitor
--- NOTE | 2017-12-13 15:38 | PC.NURSE ---
Liquid stool noted after enema
[2017-12-13 15:42] VITALS: BMI 26.9
[2017-12-13 16:00] VITALS: BP 165/85; PULSE 88; RESP 18; TEMP 37.2; O2SAT 95
[2017-12-13 16:42] LABS: POC Glucose,Bedside 131 mg/dL
[2017-12-13 19:41] VITALS: O2SAT 86
[2017-12-13 20:00] VITALS: BP 147/82; PULSE 105; RESP 20; TEMP 36.8; O2SAT 90
[2017-12-13 20:30] VITALS: O2SAT 90
--- NOTE | 2017-12-13 23:21 | PC.NURSE ---
Dr Queen paged r/t pt increase in pain with no relief of [employer]ARD, oral pain medication or IV toradol. had recently called this nurse @ 2019 to check on pt and told of pt increase in pain and gave order for 30 mg toradol IVP once, Bret told of this conversation with and stated he doesnt know much about the pt to paged Dr. Vela. No new orders given at this time.
--- NOTE | 2017-12-13 23:26 | PC.NURSE ---
Dr arias paged (see notify MD intervention for times) in relation to pt increase in pain. MD gave order for boosting dose via SOCIAL SERVICES AIDE of morphine 2mg now one time and to increase SOCIAL SERVICES AIDE to 1mg Q10min. Order and medications repeated back and verified.
--- NOTE | 2017-12-14 03:50 | PC.NURSE ---
Pt has rested well this shift with no c/o pain. Pt only alert to person, states she is not sure where she is at or the year. BS active in all 4 qauds, abdomen is very distended and mildly firm, pt unable to recall LBM, according to day shift nurse LBM 12/13/17. Lung sounds [employer]IECE [employer]ION [employer]ER HAND auscultation. VSS. Safety device in place. No acute distress noted. Will continue to monitor.
[2017-12-14 04:00] VITALS: BP 140/86; PULSE 85; RESP 20; TEMP 37.2; O2SAT 91
--- NOTE | 2017-12-14 05:13 | PC.NURSE ---
milk and molassess Enema administer SC @ 0400, no results at this time.
--- NOTE | 2017-12-14 06:56 | PC.NURSE ---
NOTIFIED FAMILY OF RAPID DECLINE. STATED THEY ARE COMING TO HOSPITAL
[2017-12-14 07:17] LABS: Basophils % 0.4 % (0.1-2.0); Eosinophils % 0.3 % (0.1-12.0); Hematocrit 39.3 % (37.0-47.0); Hemoglobin 12.3 g/dL (12.2-16.2); Lymphocytes # 4.2 K/mm3 (0.7-4.5); Lymphocytes % 50.9 K/mm3 (10-50); Mean Corpuscular HGB Conc 31.2 g/dL (31.8-35.4); Mean Corpuscular Hemoglobin 29.7 pg (27.0-31.2); Mean Corpuscular Volume 94.9 fl (81-99); Mean Platelet Volume 7.7 fl (7.4-10.4); Monocytes # 0.5 K/mm3 (0.1-1.0); Monocytes % 5.4 % (1.7-9.3); Neutrophils # 3.6 K/mm3 (1.8-7.8); Neutrophils % 43.1 % (37.0-80.0); Platelet Count 210 K/mm3 (142-424); Red Blood Count 4.14 M/mm3 (4.20-5.40); Red Cell Distribution Width 13.9 % (11.5-17.5); White Blood Count 8.3 K/mm3 (4.8-10.8)
[2017-12-14 07:21] LABS: MANUAL DIFFERENTIAL MANUAL DIFFERENTIAL (MANUAL DIFF)
[2017-12-14 07:22] LABS: Blood Urea Nitrogen 15 mg/dL (7-18); Carbon Dioxide 27 mmol/L (21.0-32.0); Chloride 113 mmol/L (98-107); Creatinine Clearance Estimated 54 mL/min (0-300); Creatinine,Serum 0.85 mg/dL (0.55-1.02); Estimated Glomerular Filt Rate 64 ml/min (>60); GFR (African American) 78 ML/MIN (>60); Glucose 208 mg/dL (74-106)
[2017-12-14 07:36] LABS: Sodium 151 mmol/L (136-145)
--- NOTE | 2017-12-14 08:01 | HMH.ACPN2 ---
Internal Medicine - PN: Subj *Date: 12/14/17 *Time: 07:30 Interval history: Patient has had a significant decline through the night. She had a vomiting episode which led into a seizure. She was given a dose of IV ativan and seizure activity subsided. Patient's mental status has declined and she is now requiring oxygen support which may be related to aspiration. Unresponsive. Respirations shallow and labored. Lung sounds clear anteriorly. Rate and rhythm regular, tachycardiac. Abdomen firm and distended. Exam Vital signs and Labs for Last 24 Hours: Temp Pulse Resp BP Pulse Ox 99.0 F 85 20 140/86 91 L 12/14/17 04:00 12/14/17 04:00 12/14/17 04:00 12/14/17 04:00 12/14/17 04:00 Laboratory Results - last 24 hr 12/13/17 11:55: POC Glucose 179 12/13/17 16:25: POC Glucose 131 12/14/17 06:30: WBC 8.3 D, RBC 4.14 L, Hgb 12.3, Hct 39.3, MCV 94.9, MCH 29.7, MCHC 31.2 L, RDW 13.9, Plt Count 210 D, MPV 7.7, Neut % (Auto) 43.1, Lymph % (Auto) 50.9 H, [place] % (Auto) 5.4, Eos % (Auto) 0.3, Baso % (Auto) 0.4, Neut # (Auto) 3.6, Lymph # (Auto) 4.2, [place] # (Auto) 0.5, Eos # (Auto) 0.0, Baso # (Auto) 0.0 12/14/17 06:30: Sodium 151 H*, Potassium 3.0 L, Chloride 113 H, Carbon Dioxide 27, Anion Gap 14.0, BUN 15 D, Creatinine 0.85, Estimated Creat Clear 54, Estimated GFR 64, Est GFR ( Amer) 78, Glucose 208 H D I & O for Last 24 hours: Intake & Output 12/11/17 12/12/17 12/13/17 12/14/17 11:59 11:59 11:59 11:59 Intake Total 100 / 100 722 / 722 2649 / 2649 Output Total 600 / 600 Balance 100 / 100 722 / 722 2048 Weight 167 lb 7 oz 167 lb 6.987 oz Assessment and Plan (1) Ileus Current visit: Yes Status: Acute Category: Medical Code(s): K56.7 - Ileus, unspecified (2) Acute gastritis Current visit: Yes Status: Acute Category: Medical Code(s): K29.00 - Acute gastritis without bleeding (3) Pseudoobstruction of colon Current visit: Yes Status: Chronic Category: Medical Code(s): K59.8 - Other specified functional intestinal disorders (4) Coffee ground emesis Current visit: Yes Status: Acute Category: Medical Code(s): K92.0 - Hematemesis - Assessment and plan all Dx Assessment and Plan for all problems:: Continue with palliative care. Morphine PRN pain/shortness of air. Family was notified of patient's decline by nursing staff. Will obtain abdominal film to evaluate for possible perforation.
--- NOTE | 2017-12-14 08:08 | P.PN_ITS ---
Internal Medicine - PN: Subj *Date: 12/14/17 *Time: 07:30 Interval history: Patient has had a significant decline through the night. She had a vomiting episode which led into a seizure. She was given a dose of IV ativan and seizure activity subsided. Patient's mental status has declined and she is now requiring oxygen support which may be related to aspiration. Unresponsive. Respirations shallow and labored. Lung sounds clear anteriorly. Rate and rhythm regular, tachycardiac. Abdomen firm and distended. Exam Vital signs and Labs for Last 24 Hours: Temp Pulse Resp BP Pulse Ox 99.0 F 85 20 140/86 91 L 12/14/17 04:00 12/14/17 04:00 12/14/17 04:00 12/14/17 04:00 12/14/17 04:00 Laboratory Results - last 24 hr 12/13/17 11:55: POC Glucose 179 12/13/17 16:25: POC Glucose 131 12/14/17 06:30: WBC 8.3 D, RBC 4.14 L, Hgb 12.3, Hct 39.3, MCV 94.9, MCH 29.7, MCHC 31.2 L, RDW 13.9, Plt Count 210 D, MPV 7.7, Neut % (Auto) 43.1, Lymph % ( Auto) 50.9 H, [place] % (Auto) 5.4, Eos % (Auto) 0.3, Baso % (Auto) 0.4, Neut # ( Auto) 3.6, Lymph # (Auto) 4.2, [place] # (Auto) 0.5, Eos # (Auto) 0.0, Baso # (Auto ) 0.0 12/14/17 06:30: Sodium 151 H*, Potassium 3.0 L, Chloride 113 H, Carbon Dioxide 27, Anion Gap 14.0, BUN 15 D, Creatinine 0.85, Estimated Creat Clear 54, Estimated GFR 64, Est GFR ( Amer) 78, Glucose 208 H D I & O for Last 24 hours: Intake & Output 12/11/17 12/12/17 12/13/17 12/14/17 11:59 11:59 11:59 11:59 Intake Total 100 / 100 722 / 722 2649 / 2649 Output Total 600 / 600 Balance 100 / 100 722 / 722 2048 Weight 167 lb 7 oz 167 lb 6.987 oz Assessment and Plan (1) Ileus Current visit: Yes Status: Acute Category: Medical Code(s): K56.7 - Ileus , unspecified (2) Acute gastritis Current visit: Yes Status: Acute Category: Medical Code(s): K29.00 - Acute gastritis without bleeding (3) Pseudoobstruction of colon Current visit: Yes Status: Chronic Category: Medical Code(s): K59.8 - Other specified functional intestinal disorders (4) Coffee ground emesis Current visit: Yes Status: Acute Category: Medical Code(s): K92.0 - Hematemesis - Assessment and plan all Dx Assessment and Plan for all problems:: Continue with palliative care. Morphine PRN pain/shortness of air. Family was notified of patient's decline by nursing staff. Will obtain abdominal film to evaluate for possible perforation.
--- NOTE | 2017-12-14 08:14 | PC.NURSE ---
APROX. 0545 THIS NURSE CAME INTO ROOM TO CHECK ON RESULT OF ENEMA THAT WAS GIVEN PREVIOUSLY THIS SHIFT, PT WAS SITTING ON SIDE OF BED STATING SHE WAS THIRSTY AND WAS ASKING FOR WATER, ASSISTED PT IN POURING WATER. AFTER TAKING A DRINK OF WATER PT STATED SHE NEEDED TO HAVE A BM. PT ASSISTED BY THIS NURSE TO BR, PT HAD SMALL WATERY BM AT THAT TIME. PT THEN ASSISTED BACK TO BED AND APPLIED BRIEF TO PT. APROX. 0605 PT BECAME VERY RED AND STARTED VOMITING BROWNISH CLEAR EMESIS, THIS NURSE SAT PT UP 90 DEGREES IN BED AND ADMINISTERED PRN ZOFRAN TO WHICH THAT SEEMED SOME RELIEF. THIS NURSE CALLED FOR Jagdish DUMONT TO HELP CLEAN EMESIS FROM PT AND THEN PT BEGAN SEIZING AND BECAME CYANOTIC, 2L NC WAS ON PT AT THIS TIME. PT TURNED TO HER SIDE AND PROTECTED BY NURSING STAFF FROM INJURY (PT WAS IN BED AT THIS TIME) PT HAD A TOTAL OF 2 SEIZURES IN 10 MINUTE PERIOD. AT 0615 DR PADILLA NOTIFIED BY Selam NUNN RN TO OBTAIN 1MG OF ATIVAN IVP ONE TIME DOSE, NO MORE SEIZURES AFTER THIS DOSE. RT CALLED INTO ROOM AT THIS TIME AND SET UP SUCTION AND SUCTION PT ORALLY, NO CHANGE NOTED. LUNGS AUSCULTATED AT THIS TIME WHICH REVEALED WHEEZING AND RHONCHI, ABDOMEN WAS VERY DISTENDED (CHANGE FROM PREVIOUS ASSESSMENT). V/S OBTAIN AT THIS TIME: B/P 143/93 HR 135-145 IRREGULAR RR 30 O2 14 (100% NON RE-BREATHER APPLIED AT THIS TIME) 02 SATS WENT UP TO HIGH 96% BUT DROPPED TO LOW 80S HIGH 70S. FAMILY AWARE OF PT CONDITION, NOTIFIED BY Selam NUNN RN.
--- NOTE | 2017-12-14 08:20 | PC.NURSE ---
0812: notified dr mondragon that pt has . Dr Mondragon to make arrangement for a physician to come to floor to call time of .
--- NOTE | 2017-12-14 08:25 | HMH.DEATH ---
Pronouncement Note - Date and Time of Date of : 12/14/17 Time of : 08:12 - PCOD Preliminary cause of : Abdominal pain - Additional Data Confirmation of : no pulse, no respirations, no heart sounds, pupils fixed and dilated Family: at bedside Attending/PCP notified?: Yes Attending physician: Baoz Mondragon MD Was code activated?: No Autopsy requested?: No pension examiner notified?: Yes Organ bank notified?: Yes Advance directives: No
--- NOTE | 2017-12-14 08:29 | PC.NURSE ---
dr bradley to floor and calls time of
--- NOTE | 2017-12-14 08:57 | PC.NURSE ---
REPORT GIVEN TO Tyler RAYGOZA RN
[2017-12-14 09:15] LABS: Lymphocytes % 40 % (10-50); Monocytes % 2 % (2-9); Neutrophils % 47 % (42-76); Total Cells Counted 100
[2017-12-14 09:16] LABS: Platelet Estimate Normal; RBC Morphology Normal
--- NOTE | 2017-12-14 10:17 | PC.NURSE ---
0920: post mortum care given per nursing staff
[2017-12-14 11:26] LABS: POC Glucose,Bedside 130 mg/dL
[2017-12-14 11:26] LABS: POC Glucose,Bedside 135 mg/dL
== END 2017-12-14 10:54 | disposition expired | DRG 390 ==
LOC: ER 16:08 → 2ND 16:19
PROVIDERS: Surgery; Admitting Provider Emergency Medicine; Emergency Provider Emergency Medicine; Family Provider Emergency Medicine; PCP Emergency Medicine; Visit Provider Internal Medicine Adolescent Medicine
DX: K56.7 Ileus, unspecified (principal); R56.9 Unspecified convulsions; Z51.5 Encounter for palliative care; Z66 Do not resuscitate; K29.00 Acute gastritis without bleeding; Z79.899 Other long term (current) drug therapy; K59.00 Constipation, unspecified; R11.10 Vomiting, unspecified
CPT/HCPCS: 36415; 74021; 74176; 80048; 80053; 82272; 82962; 83605; 83735; 85007; 85014; 85018; 85025; 85610; 85730; 93041; 94760; 94761; 96365; 99284; G0328; J2270; J2405